=== PATIENT | male | born 1990 | race African-American/Black ===

== ENCOUNTER 2024-11-10 14:16 | Emergency (ER) | payer SELFPAY ==
[~2024-11-10] VITALS: Ht 180.3 cm; Wt 81.6 kg
[2024-11-10 14:27] VITALS: O2SAT 100
[2024-11-10] MEDS ORDERED: IBUP-2029 MT (18:30)
[2024-11-10] MEDS ORDERED: GUAI-450 MT (18:30)
[2024-11-10] MEDS ORDERED: ISOP30DR11 EACH EAR (18:30)
[2024-11-10 18:43] VITALS: BP 118/65; PULSE 65; RESP 16; TEMP 36.78072; O2SAT 100
== END 2024-11-10 19:16 | disposition home or self-care (01) ==
LOC: ER 14:16
DX: H61.23 Impacted cerumen, bilateral (principal); B34.9 Viral infection, unspecified
CPT/HCPCS: 99282